=== PATIENT | female | born 1985 | race Hispanic/Latino ===

== ENCOUNTER 2018-03-28 13:47 | Emergency (ER) | payer SELFPAY ==
[2018-03-28 13:57] VITALS: TEMP 99.1; O2SAT 100
--- NOTE | 2018-03-28 14:15 | ED.PDOC ---
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 According to the patient her last menstrual period was 20 February which puts her at only 2-3 weeks post conception. low resolution Transabdominal ultrasound by me is unable to demonstrate a gestational sac yet. she is only having a little bit of spotting. She has had a successful before. No significant pain. She is unsure of her blood type. Timing/Duration: 1 hour Severity: mild Improving Factors: nothing Worsening Factors: nothing Associated Symptoms: denies symptoms Allergies/Adverse Reactions: Allergies NO KNOWN ALLERGY Allergy (Verified 06/01/16 07:29) Home Medications: Ambulatory Orders NK [NK] 06/01/16 Review of Systems - Review of Systems Constitutional: States: no symptoms reported EENTM: States: no symptoms reported Respiratory: States: no symptoms reported Cardiology: States: no symptoms reported Gastrointestinal/Abdominal: States: no symptoms reported Genitourinary: States: see HPI Musculoskeletal: States: no symptoms reported Skin: States: no symptoms reported Neurological: States: no symptoms reported Endocrine: States: no symptoms reported All other Systems: No Change from Baseline Past Medical History (General) - Patient Medical History Hx Seizures: No Hx Stroke: No Hx Dementia: No Hx Asthma: No Hx of COPD: No Hx Cardiac Disorders: No Hx Congestive Heart Failure: No Hx Pacemaker: No Hx Hypertension: No Hx Thyroid Disease: No Hx Diabetes: No Hx Gastroesophageal Reflux: No Hx Renal Disease: No Hx Cancer: No Hx of HIV: No Hx Hepatitis C: No Hx MRSA: No - Vaccination History Hx Tetanus, Diphtheria Vaccination: Yes Hx Influenza Vaccination: No Hx Pneumococcal Vaccination: No - Social History Hx Tobacco Use: No Hx Alcohol Use: No Hx Substance Use: No Hx Substance Use Treatment: No Hx Depression: No Hx Physical Abuse: No Hx Emotional Abuse: No Hx Suspected Abuse: No - Female History Patient is a Female of Child Bearing Age (10 -59 yrs old): Yes Patient : Yes Family Medical History - Family History Mother Family History: No Known Living Status: Still Living Hx Family Asthma: No Physical Exam - Physical Exam General Appearance: Alert, Comfortable, No apparent distress Eye Exam: bilateral normal Ears, Nose, Throat: hearing grossly normal Neck: full range of motion Respiratory: no respiratory distress, no accessory muscle use Cardiovascular/Chest: normal peripheral pulses, no edema Peripheral Pulses: radial,right: 2+, radial,left: 2+ Gastrointestinal/Abdominal: non tender, soft Rectal Exam: deferred Back Exam: normal inspection Extremity: normal range of motion, no pedal edema, normal capillary refill Neurologic: pediatric immunologist II-XII nml as tested, alert, normal mood/affect, oriented x 3 Skin Exam: normal color Comments: Vital Signs - 24 hr 03/28/18 13:53 Temperature 99.1 F Pulse Rate [ 71 left brachial] Respiratory 20 Rate Blood Pressure 136/82 [left brachial] O2 Sat by Pulse 100 Oximetry Progress - Progress Progress: 03/28/18 15:01 the patient is a 33-year-old female presenting to the emergency room secondary to vaginal spotting after having had a positive urine test. Low resolution ultrasound performed here by me failed to show any definitive intrauterine though time since conception was likely only 2-3 weeks. blood type is A+. Quantitative serum hCG is 5.9. The patient needs to have a repeat hCG performed in 2 days. At this point in time this is a threatened miscarriage. ER warnings were given for any significant worsening. Pelvic rest is recommended. No anti-inflammatories or aspirin are to be taken. Departure - Departure Clinical Impression: Threatened in early Disposition: Discharge to Home or Self Care Condition: Fair Departure Forms: ED Discharge - Pt. Copy, Patient Portal Self Enrollment Instructions: DI for Threatened Diet: regular diet Activity: increase activity as tolerated - pelvic rest Home Medications: Ambulatory Orders NK [NK] 06/01/16 Additional Instructions: the patient is a 33-year-old female presenting to the emergency room secondary to vaginal spotting after having had a positive urine test. Low resolution ultrasound performed here by me failed to show any definitive intrauterine though time since conception was likely only 2-3 weeks. blood type is A+. Quantitative serum hCG is 5.9. The patient needs to have a repeat hCG performed in 2 days. At this point in time this is a threatened miscarriage. ER warnings were given for any significant worsening. Pelvic rest is recommended. No anti-inflammatories or aspirin are to be taken.
[2018-03-28 15:18] VITALS: BP 123/80
== END 2018-03-28 15:20 | disposition home or self-care (01) ==
LOC: ER 13:47
DX: O20.0 Threatened abortion (principal); Z3A.01 Less than 8 weeks gestation of pregnancy